=== PATIENT | female | born 1955 | race Two or more races ===

== ENCOUNTER 2018-08-04 21:34 | Emergency (ER) | payer OTHER ==
[2018-08-04] MEDS ORDERED: LISI-374 PO (22:05)
[2018-08-04] MEDS ORDERED: ASPIRIN 81 MG CHEW PO ONE (22:10)
--- NOTE | 2018-08-04 22:17 | ER Report ---
History and Physical Time Seen By MD: 22:06 Hx. of Stated Complaint: CHEST PAIN SINCE YESTERDAY, PAIN 12/24, STERNAL HPI/ROS CHIEF COMPLAINT: Shortness of breath, chest pain HISTORY OF PRESENT ILLNESS: This is a 63-year-old female. She is visiting here from [place]. Helping her disabled son and will be here a few more days. She's been here about 4 days and has been very short of breath since she arrived. Was feeling fine when she was in [place]. Her shortness of breath worsens with any exertion, the last 2 days she's been feeling exceptionally poorly with onset of chest pain as well. Chest pain also worsens with exertion. Chest pain is more of a pressure sensation in her central chest. She rates it about a 7 out of 10. She is also having nausea. She has had a little bit of a cough perhaps some chills but no known fevers. He has a history of hypertension and is on lisinopril. Otherwise no known cardiac history. She is having significant dizziness as well when she stands and has a mild headache. Allergies: Coded Allergies: No Known Drug Allergies (Unverified , 08/04/18) Home Meds Reported Medications Lisinopril (LISINOPRIL) 40 Mg Tablet, 40 MG PO QDAY, TAB 08/04/18 Reviewed Nurses Notes: Yes Constitutional Vital Sign - Last 24 Hours 08/04/18 08/04/18 08/04/18 08/04/18 21:57 22:00 22:01 22:04 Temp 98.9 Pulse 106 106 Resp 16 20 B/P (MAP) 137/94 (108) 142/86 (104) 142/86 Pulse Ox 94 92 O2 Delivery Room Air 08/04/18 08/04/18 08/04/18 08/04/18 22:19 22:30 22:34 22:49 Pulse 102 90 93 Resp 15 14 28 B/P (MAP) 120/58 (78) 08/04/18 08/04/18 08/04/18 08/04/18 23:00 23:04 23:19 23:24 Pulse ? B/P (MAP) ???/??? (1665) 08/04/18 08/04/18 08/04/18 08/04/18 23:32 23:39 23:52 23:54 Pulse 79 83 Resp 28 9 B/P (MAP) 115/64 (81) Pulse Ox 91 96 O2 Flow Rate 2.0 08/05/18 08/05/18 08/05/18 08/05/18 00:00 00:09 00:24 00:30 Pulse 80 86 Resp 11 14 B/P (MAP) 127/94 (105) 118/93 (101) Pulse Ox 97 97 08/05/18 08/05/18 08/05/18 08/05/18 00:39 00:54 01:00 01:09 Pulse 85 77 96 Resp 13 7 48 B/P (MAP) 122/75 (91) Pulse Ox 96 94 97 08/05/18 08/05/18 08/05/18 08/05/18 01:14 01:29 01:30 01:44 Pulse 86 84 87 Resp 16 14 12 B/P (MAP) 136/87 (103) Pulse Ox 95 95 98 08/05/18 08/05/18 08/05/18 08/05/18 01:59 02:00 02:14 02:29 Pulse 84 84 86 Resp 17 15 7 B/P (MAP) 114/71 (85) Pulse Ox 95 95 98 08/05/18 08/05/18 08/05/18 08/05/18 02:30 02:35 02:50 03:00 Pulse 83 95 Resp 11 B/P (MAP) 125/90 (102) ???/??? (1665) Pulse Ox 96 08/05/18 08/05/18 08/05/18 08/05/18 03:05 03:20 03:30 03:35 Pulse 85 81 ??? B/P (MAP) ???/??? (1665) Pulse Ox 91 92 Physical Exam General Appearance: The patient is alert. She is having some anxiety and feels poorly with some mild distress because of this. Eyes: Pupils are equal, round. Reactive to light. No pallor, injection or icterus. Extraocular movements are intact. ENT: Mucous membranes are moist. Normal oral mucosa. Posterior oropharynx is normal. Neck: Supple and non tender. No lymphadenopathy. Respiratory: Lungs are clear to auscultation. Cardiovascular: Initially some tachycardia but a regular rhythm. No murmurs, gallops or rubs. Normal capillary refill. No edema. Gastrointestinal: Abdomen is soft, nontender. Nondistended. Normal active bowel sounds. No costovertebral angle tenderness with percussion. Neurological: Alert and oriented x3. Cranial nerves II through XII show no acute deficits on my exam. No focal neurologic deficits in the extremities. Skin: Warm and dry. No rashes. Musculoskeletal: No tenderness in palpation of the cervical, thoracic and lumbar spine. DIFFERENTIAL DIAGNOSIS: After history and physical exam, differential diagnosis was considered for shortness of breath and chest pain including but not limited to myocardial ischemia, altitude related,pulmonary embolus, chest wall pain, pleural inflammation and pulmonary infectious causes. Medical Decision Making Data Points Result Diagram: 08/04/18212708/04/182127 Laboratory Hematology Test 08/04/18 21:28 08/04/18 22:17 08/04/18 22:37 08/05/18 00:54 Red Blood Count 5.27 M/uL (4.17-5.56) Mean Corpuscular Volume 85.5 fL (80.0-96.0) Mean Corpuscular Hemoglobin 28.6 pg (26.0-33.0) Mean Corpuscular Hemoglobin Concent 33.5 g/dL (32.0-36.0) Red Cell Distribution Width 13.8 % (11.5-14.5) Mean Platelet Volume 7.9 fL (7.2-11.1) Neutrophils (%) (Auto) 43.7 % (39.4-72.5) Lymphocytes (%) (Auto) 43.0 % (17.6-49.6) Monocytes (%) (Auto) 11.0 % (4.1-12.4) Eosinophils (%) (Auto) 1.6 % (0.4-6.7) Basophils (%) (Auto) 0.7 % (0.3-1.4) Nucleated RBC Relative Count (auto) 0.1 /100WBC Neutrophils # (Auto) 2.7 K/uL (2.0-7.4) Lymphocytes # (Auto) 2.7 K/uL (1.3-3.6) Monocytes # (Auto) 0.7 K/uL (0.3-1.0) Eosinophils # (Auto) 0.1 K/uL (0.0-0.5) Basophils # (Auto) 0.0 K/uL (0.0-0.1) Nucleated RBC Absolute Count (auto) 0.01 K/uL Prothrombin Time 13.6 seconds (12.0-14.4) Prothromb Time International Ratio 1.04 Activated Partial Thromboplast Time 29 seconds (23-35) D-Dimer Quantitative (PE/DVT) 0.59 ug/ml (0-0.50) Sodium Level 140 mmol/L (137-145) Potassium Level 3.2 mmol/L (3.5-5.0) Chloride Level 104 mmol/L (98-107) Carbon Dioxide Level 24 mmol/L (22-31) Blood Urea Nitrogen 16 mg/dl (7-18) Creatinine 1.10 mg/dl (0.52-1.04) Glomerular Filtration Rate Calc 50.3 Random Glucose 165 mg/dl (75-110) Calcium Level 9.7 mg/dl (8.4-10.2) Total Bilirubin 0.6 mg/dl (0.2-1.3) Aspartate Amino Transf (AST/SGOT) 41 U/L (0-35) Alanine Aminotransferase (ALT/SGPT) 45 U/L (0-56) Alkaline Phosphatase 63 U/L (0-126) B-Type Natriuretic Peptide 20 pg/ml (0-100) Total Protein 8.1 g/dl (6.3-8.2) Albumin 4.7 g/dl (3.5-5.0) Influenza Virus Type A (PCR) Negative (NEGATIVE) Influenza Virus Type B (PCR) Negative (NEGATIVE) Lactate 2.3 mmol/L (0.7-2.1) Troponin I < 0.012 ng/ml Chemistry Test 08/04/18 21:28 08/04/18 22:17 08/04/18 22:37 08/05/18 00:54 White Blood Count 6.2 k/uL (4.5-11.0) Red Blood Count 5.27 M/uL (4.17-5.56) Hemoglobin 15.1 g/dL (12.0-16.0) Hematocrit 45.0 % (34.0-47.0) Mean Corpuscular Volume 85.5 fL (80.0-96.0) Mean Corpuscular Hemoglobin 28.6 pg (26.0-33.0) Mean Corpuscular Hemoglobin Concent 33.5 g/dL (32.0-36.0) Red Cell Distribution Width 13.8 % (11.5-14.5) Platelet Count 338 K/uL (150-450) Mean Platelet Volume 7.9 fL (7.2-11.1) Neutrophils (%) (Auto) 43.7 % (39.4-72.5) Lymphocytes (%) (Auto) 43.0 % (17.6-49.6) Monocytes (%) (Auto) 11.0 % (4.1-12.4) Eosinophils (%) (Auto) 1.6 % (0.4-6.7) Basophils (%) (Auto) 0.7 % (0.3-1.4) Nucleated RBC Relative Count (auto) 0.1 /100WBC Neutrophils # (Auto) 2.7 K/uL (2.0-7.4) Lymphocytes # (Auto) 2.7 K/uL (1.3-3.6) Monocytes # (Auto) 0.7 K/uL (0.3-1.0) Eosinophils # (Auto) 0.1 K/uL (0.0-0.5) Basophils # (Auto) 0.0 K/uL (0.0-0.1) Nucleated RBC Absolute Count (auto) 0.01 K/uL Prothrombin Time 13.6 seconds (12.0-14.4) Prothromb Time International Ratio 1.04 Activated Partial Thromboplast Time 29 seconds (23-35) D-Dimer Quantitative (PE/DVT) 0.59 ug/ml (0-0.50) Glomerular Filtration Rate Calc 50.3 Calcium Level 9.7 mg/dl (8.4-10.2) Total Bilirubin 0.6 mg/dl (0.2-1.3) Aspartate Amino Transf (AST/SGOT) 41 U/L (0-35) Alanine Aminotransferase (ALT/SGPT) 45 U/L (0-56) Alkaline Phosphatase 63 U/L (0-126) B-Type Natriuretic Peptide 20 pg/ml (0-100) Total Protein 8.1 g/dl (6.3-8.2) Albumin 4.7 g/dl (3.5-5.0) Influenza Virus Type A (PCR) Negative (NEGATIVE) Influenza Virus Type B (PCR) Negative (NEGATIVE) Lactate 2.3 mmol/L (0.7-2.1) Troponin I < 0.012 ng/ml Coagulation Test 08/04/18 21:28 Prothrombin Time 13.6 seconds Prothromb Time International Ratio 1.04 Activated Partial Thromboplast Time 29 seconds D-Dimer Quantitative (PE/DVT) 0.59 ug/ml EKG/Imaging EKG Interpretation 12 lead EKG: At 2203 hrs. Rhythm: Normal sinus rhythm, rate 100 [place]: Left axis QRS: Left bundle branch block 12 lead EKG: At 0050 hours Rhythm: normal sinus rhythm, rate [address] angiogram of the chest: Indication: Chest pain and dyspnea. Technique: Helical CT was performed through the chest following IV contrast enhancement with 75 cc of Isovue 370. Multiplanar reconstructions and MIP images are reviewed. One of the following dose optimization techniques was utilized in the performan ce of this exam: Automated exposure control; adjustment of the mA and/or kV according to the patient's size; or use of an iterative reconstruction technique. Specific details can be referenced in the facility's radiology CT exam operational policy. Comparison: None available. Pulmonary arteries: There is uniform contrast enhancement, with the exception of flow artifact in the main pulmonary artery. There are no definite signs of pulmonary emboli in the central or peripheral branches. Aorta and great vessels: There is uniform contrast enhancement. The ascending thoracic aorta is upper limits of normal in size, measuring 3.8 cm. There are no signs of aortic dissection. Heart and pericardial soft tissues: Within normal limits. Mediastinal soft tissues: Small calcified lymph nodes are present in the subcarinal region, compatible with chronic granulomatous disease. There are no signs of mediastinal mass or other soft tissue abnormality. Lung [place]: Well-expanded and clear. No acute parenchymal process is identified. There may be a small granuloma in the left lower lobe. Pleural spaces: No evidence of effusion, focal pleural thickening, or pneumothorax. Skeletal structures: There are mild/moderate degenerative changes in the thoracic spine. No acute skeletal deformity is identified. Upper abdomen: A calcified granuloma observed in the liver. Otherwise unremarkable. IMPRESSION: No evidence of pulmonary emboli. No acute parenchymal or pleural process is identified. Report Dictated By: New Wetzel MD at 08/05/2018 12:[address]: Indication: Dizziness. Technique: Contiguous axial sections were obtained from the base to the vertex without contrast enhancement. One of the following dose optimization techniques was utilized in the performance of this exam: Automated exposure control; adjustment of the mA and/or kV according to the patient's size; or use of an iterative reconstruction technique. Specific details can be referenced in the facility's radiology CT exam operational policy. Comparison: None available. Findings: There is no evidence of intra-axial or extra-axial hemorrhage. There is mild diffuse cortical atrophy. No focal areas of decreased or increased attenuation are identified. There is no evidence of mass, edema, or shift of the midline structures. The size, shape, and configuration of the ventricular system are normal. The skeletal structures are intact and unremarkable. There is no evidence of fracture or other acute deformity. The visualized paranasal sinuses and mastoid air cells are clear. Impression: Mild atrophy. No acute intracranial process is identified. Report Dictated By: New Wetzel MD at 08/05/2018 12:17 AM ED Course/Re-evaluation Clinical Indication for ER IV: Hydration, IV Access ED Course Initially the patient had some mild elevated blood pressure and was tachycardic. Oxygen saturations were about 89-93% on room air. She did have a little bit of desaturation later on requiring some oxygen and felt much better on 2 L of oxygen by nasal cannula now satting about 94-97%. Blood pressures come down and pulses better as well. Initial EKG was left bundle branch block which she does not have any history of cardiac problems in the past. Initial troponin negative. Repeat troponin 3 hours was negative. Initial d-dimer was slightly elevated so CT angiogram was performed and is negative for PE or other pulmonary parenchymal disease. BNP is also negative. Negative troponin. Electrolytes show a mildly low potassium at 3.2 but otherwise unremarkable. I reviewed the case with the patient and then called and spoke with Dr. Phelan, cardiology, and then with Dr. Shepard, hospitalist, at [facility] [place] They've accepted the patient for transfer there for further workup including a nuclear stress test and echocardiogram today to rule out myocardial disease or acute coronary syndrome. Decision to Disposition Date: Aug 05, 2018 Decision to Disposition Time: 02:30 Depart Departure Latest Vital Signs Vital Signs Date Time Temp Pulse Resp B/P (MAP) Pulse Ox O2 Delivery O2 Flow Rate FiO2 08/05/18 03:35 ??? 08/05/18 03:30 ???/??? (1665) 08/05/18 03:20 92 08/05/18 02:35 11 08/04/18 23:52 2.0 08/04/18 22:01 98.9 Room Air Impression: Primary Impression: Chest pain Additional Impression: Bundle branch block, left Condition: Condition Unchanged Disposition: [facility] TO [facility] Problem Qualifiers Primary Impression: Chest pain Chest pain type: unspecified Qualified Codes: R07.9 - Chest pain, unspecified THA CHOWDHURY MD Aug 04, 2018 22:17
--- NOTE | 2018-08-04 22:28 | EKG ---
FACILITY: [facility] - [place] PATIENT NAME: GISELA BOND : [id number] MR: [id number] V: [id number] EXAM DATE: ORDERING PHYSICIAN: THA CHOWDHURY TECHNOLOGIST: SELENA Test Reason : CARDIAC Blood Pressure : / mmHG Vent. Rate : 100 BPM Atrial Rate : 100 BPM P-R Int : 144 ms QRS Dur : 154 ms QT Int : 408 ms P-R-T Axes : 032 -33 114 degrees QTc Int : 526 ms Normal sinus rhythm Left axis deviation Left bundle branch block Abnormal ECG No previous ECGs available Confirmed by Monico Pillai ([id number]) on 08/04/2018 10:51:09 PM Referred By: Confirmed By:Monico Toro
[2018-08-04 22:29] LABS: PLATELET COUNT, AUTOMATED 338 K/uL (150-450)
[2018-08-04 22:36] LABS: INR 1.04
[2018-08-04] MEDS ORDERED: IOPAMIDOL 76% 75 ML INFUS BTL 75 ML ONE (22:36)
[2018-08-04] MEDS ORDERED: NS(*) 0.9% 50 ML BAG 50 ML ONE (22:36)
--- NOTE | 2018-08-05 00:24 | RADIOLOGY IMAGING REPORT ---
FACILITY: [facility] - [place] PATIENT NAME: Laura Schroeder : 1955 MR: [id number] V: [id number] EXAM DATE: ORDERING PHYSICIAN: THA CHOWDHURY TECHNOLOGIST: Location: [facility] Patient: Laura Schroeder : 1955 Visit/Account:[id number] Date of Sevice: 08/04/[address]: Indication: Dizziness. Technique: Contiguous axial sections were obtained from the base to the vertex without contrast enhan cement. One of the following dose optimization techniques was utilized in the performance of this exam: Autom ated exposure control; adjustment of the mA and/or kV according to the patient's size; or use of an i terative reconstruction technique. Specific details can be referenced in the facility's radiology CT exam operational policy. Comparison: None available. Findings: There is no evidence of intra-axial or extra-axial hemorrhage. There is mild diffuse cortic al atrophy. No focal areas of decreased or increased attenuation are identified. There is no evidence of mass, edema, or shift of the midline structures. The size, shape, and configuration of the ventri cular system are normal. The skeletal structures are intact and unremarkable. There is no evidence of fracture or other acute deformity. The visualized paranasal sinuses and mastoid air cells are clear. Impression: Mild atrophy. No acute intracranial process is identified. Report Dictated By: New Wetzel MD at 08/05/2018 12:17 AM Report E-Signed By: New Wetzel MD at 08/05/2018 12:20 AM [id number]
--- NOTE | 2018-08-05 00:35 | RADIOLOGY IMAGING REPORT ---
[place] [facility] [place]: Laura Schroeder : 1955 MR: [id number] V: [id number] EXAM DATE: ORDERING PHYSICIAN: THA CHOWDHURY TECHNOLOGIST: [place] [facility] [place]ro[place] : 1955 Visit/Account:[id number] Date of Sevice: 08/04/2018 CT angiogram of the chest: Indication: Chest pain and dyspnea. Technique: Helical CT was performed through the chest following IV contrast enhancement with 75 cc of Isovue 370. Multiplanar reconstructions and MIP images are reviewed. One of the following dose optimization techniques was utilized in the performance of this exam: Autom ated exposure control; adjustment of the mA and/or kV according to the patient's size; or use of an i terative reconstruction technique. Specific details can be referenced in the facility's radiology CT exam operational policy. Comparison: None available. Pulmonary arteries: There is uniform contrast enhancement, with the exception of flow artifact in the main pulmonary artery. There are no definite signs of pulmonary emboli in the central or peripheral branches. Aorta and great vessels: There is uniform contrast enhancement. The ascending thoracic aorta is upper limits of normal in size, measuring 3.8 cm. There are no signs of aortic dissection. Heart and pericardial soft tissues: Within normal limits. Mediastinal soft tissues: Small calcified lymph nodes are present in the subcarinal region, compatibl e with chronic granulomatous disease. There are no signs of mediastinal mass or other soft tissue abn ormality. Lung [place]: Well-expanded and clear. No acute parenchymal process is identified. There may be a smal l granuloma in the left lower lobe. Pleural spaces: No evidence of effusion, focal pleural thickening, or pneumothorax. Skeletal structures: There are mild/moderate degenerative changes in the thoracic spine. No acute ske letal deformity is identified. Upper abdomen: A calcified granuloma observed in the liver. Otherwise unremarkable. IMPRESSION: No evidence of pulmonary emboli. No acute parenchymal or pleural process is identified. Report Dictated By: New Wetzel MD at 08/05/2018 12:20 AM Report E-Signed By: New Wetzel MD at 08/05/2018 12:30 AM WSN:[id number]
--- NOTE | 2018-08-05 01:02 | EKG ---
FACILITY: [facility] PATIENT NAME: GISELA BOND : [id number] MR: [id number] V: [id number] EXAM DATE: ORDERING PHYSICIAN: THA CHOWDHURY TECHNOLOGIST: SELENA Akbar Reason : REPEAT EKG Blood Pressure : / mmHG Vent. Rate : 081 BPM Atrial Rate : 081 BPM P-R Int : 150 ms QRS Dur : 156 ms QT Int : 454 ms P-R-T Axes : 049 -24 087 degrees QTc Int : 527 ms Normal sinus rhythm Left bundle branch block Abnormal ECG When compared with ECG of 04-AUG-2018 22:03, No significant change was found Confirmed by Monico Pillai ([id number] on 08/05/2018 6:48:29 AM Referred By: Confirmed By:Monico Toro
== END 2018-08-05 03:49 | disposition short-term general hospital (02) ==
LOC: ER 22:02
DX: I44.7 Left bundle-branch block, unspecified (principal); R07.9 Chest pain, unspecified
CPT/HCPCS: 36415; 70450; 71275; 83605; 83880; 84484; 85025; 85379; 85610; 85730; 87040; 87502; 93005; 99285; J7050; Q9967; 82040; 82247; 82310; 82374; 82435; 82565; 82947; 84075; 84132; 84155; 84295; 84450; 84460; 84520

== ENCOUNTER → 2018-08-04 | Outpatient (CLI) | payer OTHER ==
[~2018-08-04] MED LIST: LISI-374 PO
== END ==
LOC: AMB 20:59
PROVIDERS: ATTEND Nurse Practitioner
DX: R42 Dizziness and giddiness (principal); R51 Headache; F41.9 Anxiety disorder, unspecified; R06.00 Dyspnea, unspecified
CPT/HCPCS: A0425; A0427

== ENCOUNTER → 2018-08-05 | Outpatient (CLI) | payer OTHER | LOC: AMB 03:38 | PROVIDERS: ATTEND Nurse Practitioner | DX: I44.7 Left bundle-branch block, unspecified (principal) | CPT/HCPCS: A0425; A0426 ==